=== PATIENT | female | born 1995 | race Caucasian/White ===

== ENCOUNTER 2018-05-08 19:17 | Emergency (ER) | payer OTHER ==
--- NOTE | 2018-05-08 20:05 | RAD ---
LEFT SHOULDER THREE VIEW 05/08/18 HISTORY: Pain after falling on gym tile floor. Headache, neck pain, and shoulder pain. COMPARISON: None. FINDINGS: No acute fracture or malalignment. Soft tissues are unremarkable. IMPRESSION: No acute fracture or malalignment. POS: CET
--- NOTE | 2018-05-08 20:14 | CT ---
CT CERVICAL SPINE NONCONTRAST 05/08/18 HISTORY: Fall. Neck injury. FINDINGS: Reversal of the normal lordotic curvature. Vertebral body heights and alignment are maintained. Cervi cothoracic junction is intact. No acute fracture or dislocation. IMPRESSION: No acute osseous abnormalities are demonstrated. POS: JAKUB
--- NOTE | 2018-05-08 20:15 | CT ---
CT HEAD NONCONTRAST: 05/08/18 HISTORY: Fall. Head injury. FINDINGS: There is no evidence of acute intracranial hemorrhage or infarct. Ventricles appear normal in size, s hape and position. There is no mass effect or shift of midline structures. Visualized paranasal sinus es remain well aerated. IMPRESSION: No acute intracranial abnormalities are demonstrated. POS: H
== END 2018-05-08 19:25 | disposition home or self-care (01) ==
LOC: SCSER 19:17
DX: S06.9X9A Unspecified intracranial injury with loss of consciousness of unspecified duration, initial encounter (principal); M54.2 Cervicalgia; M25.512 Pain in left shoulder; F32.9 Major depressive disorder, single episode, unspecified; F41.9 Anxiety disorder, unspecified; Z79.899 Other long term (current) drug therapy; W18.30XA Fall on same level, unspecified, initial encounter
CPT/HCPCS: 70450; 72125

== ENCOUNTER 2018-05-20 16:34 | Emergency (ER) | payer OTHER ==
[2018-05-20 17:30] LABS: #Eosinphils 0.1 thou/uL (0.0-0.7); #Lymphocytes 2.7 thou/uL (1.20-3.40); #Monocytes 0.5 thou/uL (0.11-0.59); #Neutrophils 6.1 thou/uL (1.40-6.50); %Basophils 0.5 % (0.0-1.0); %Eosinophils 1.2 % (0.0-10.0); %Lymphocytes 28.8 % (21.0-51.0); %Monocytes 5.7 % (0.0-10.0); %Neutrophils 63.8 % (42.0-75.0); Hemoglobin 13.3 g/dL (12.0-16.0); Mean Corpuscular HGB CONC 33.8 g/dL (32.0-36.0); Mean Corpuscular Hemoglobin 31.3 pg (27.0-31.0); Mean Corpuscular Volume 92.5 fL (78.0-98.0); Platelet Count 363 thou/uL (130-400); RBC Distribution Width 11.5 % (11.5-14.5); Red Blood Cell (RBC) Count 4.24 mill/uL (4.20-5.40); White Blood Cell (WBC) Count 9.5 thou/uL (4.8-10.8)
[2018-05-20] MEDS ORDERED: Prochlorperazine Maleate 5 MG TAB ONE (17:37)
[2018-05-20] MEDS ORDERED: diphenhydrAMINE 50 MG/ML VIAL ONE (17:38)
[2018-05-20 17:55] LABS: ALT (SGPT) 10 U/L (8-55); AST (SGOT) 15 U/L (5-34); Albumin 4.2 g/dL (3.5-5.0); Alkaline Phosphatase 46 U/L (40-150); Anion Gap 15 mmol/L (10-20); BUN (Urea Nitrogen) 10 mg/dL (7.0-18.7); Bilirubin, Total 0.6 mg/dL (0.2-1.2); Calc. Creatinine Clearance 0 mL/min (70-130); Calcium 9.6 mg/dL (7.8-10.44); Carbon Dioxide 17 mmol/L (22-29); Chloride 107 mmol/L (98-107); Estimated GFR-MDRD 77; Globulin 3.5 g/dL (2.4-3.5); Glucose 82 mg/dL (70-105); Potassium 3.7 mmol/L (3.5-5.1); Protein, Total 7.7 g/dL (6.0-8.3); Sodium 135 mmol/L (136-145)
--- NOTE | 2018-05-20 18:23 | CT ---
NONCONTRAST HEAD CT 05/20/18 HISTORY: Headache. Patient fell. COMPARISON: 05/08/18. FINDINGS: No parenchymal hemorrhage. No extra-axial hematoma. No midline shift. Basilar cisterns are patent. Br ain volume, age appropriate. Cortical smith-white matter differentiation is preserved. Ventricles and sulci are patent and symmetric. Calvarium is intact. Adequate aeration of the sinuses and mastoid air cells. IMPRESSION: No acute intracranial posttraumatic sequela. POS: PPP
[2018-05-20] MEDS ORDERED: Ketorolac Tromethamine 30 MG/ML VIAL ONE (18:36)
[2018-05-20 18:56] LABS: Pregnancy Test - Urine (BHCG) Negative (Negative); Pregu Control Background? CLEAR/WHITE (CLR/WHITE); Pregu Control Bar Appear? YES (CONTROL BAR); Specific Gravity 1.017 (1.002-1.036)
[2018-05-20] MEDS ORDERED: Magnesium Sulfate 2 GM/100 ML BAG ONE (19:40)
[2018-05-20] MEDS ORDERED: Fentanyl 100 MCG/2 ML VIAL ONE (20:57)
== END 2018-05-20 21:02 | disposition home or self-care (01) ==
LOC: ERS 16:34
DX: S06.0X0A Concussion without loss of consciousness, initial encounter (principal); F41.9 Anxiety disorder, unspecified; F32.9 Major depressive disorder, single episode, unspecified; Z79.899 Other long term (current) drug therapy; W19.XXXA Unspecified fall, initial encounter; Y93.61 Activity, american tackle football
CPT/HCPCS: 36415; 70450; 80053; 81025; 85025; 96361; 96365; 96375; J1200; J1885; J3010; J3475; Q0164